=== PATIENT | male | born 1970 | race Two or more races ===

== ENCOUNTER 2017-01-31 16:31 | Emergency (ER) | payer MEDICAID, OTHER ==
[2017-01-31 16:41] VITALS: BP 141/93; PULSE 67; RESP 16; TEMP 98.8; O2SAT 94
--- NOTE | 2017-01-31 17:09 | EDPHY ---
H & P Stated Complaint: itchy eyes, headache, 3 days Time Seen by Provider: 01/31/17 16:51 HPI/ROS: CHIEF COMPLAINT: Headache HISTORY OF PRESENT ILLNESS: This is a 46-year-old male with a history of hypertension who presents with 3 days of ache. She describes headache bitemporal. It began gradually. It is now constant. He has not had fever. He denies visual changes, photophobia, and phonophobia. He has not had nausea or vomiting. He denies recent head trauma. He does not have sinus tenderness, nasal congestion, or sinus drainage. He had a toothache about a month ago, none since. He does report itchy eyes that he attributes to allergies. He took Tylenol 1 g at 2:00 p.m. today, 3 hours ago. He also took Tylenol yesterday. He has not otherwise taken any pain medication. REVIEW OF SYSTEMS: A ten point review of systems was performed and is negative with the exception of the items mentioned in the HPI. Past medical history: Hypertension Past surgical history: Denies Family history: Noncontributory Social history: He lives with his and 3 sons. He works in a warehouse. He does not use tobacco products. He drinks alcohol occasionally. General Appearance: Alert. Vital signs reviewed. Blood pressure 141/93. Eyes: Pupils equal and round, no conjunctival injection, no discharge. Anicteric. ENT, Mouth: Mucous membranes are moist, no oropharyngeal erythema or edema. No sinus tenderness or drainage. Neck: No lymphadenopathy, supple. Respiratory: Lungs are clear to auscultation; no wheezes, rales, or rhonchi. Cardiovascular: Regular rate and rhythm; no murmur, rub, or gallop. Gastrointestinal: Abdomen is soft and nontender, no masses or organomegaly, bowel sounds normal. Skin: Warm and dry, no rashes on exposed skin, normal color. Back: Nontender to palpation over the thoracolumbar spine. No CVAT. Extremities: No lower extremity edema, no calf tenderness or swelling. Neurological: Alert and oriented. Moving all four extremities easily and equally. Cranial nerves II through XII are examined and are intact (visual acuity not tested). Optic discs are sharp. Strength is 5 over 5 bilaterally with testing of all major motor groups. Sensation is intact to light touch over all 4 extremities. Deep tendon reflexes are 2+ in the biceps and knees bilaterally. Gait is normal. Psychiatric: Normal affect. - Personal History Current Tetanus Diphtheria and Acellular Pertussis (TDAP): Yes Tetanus Vaccine Date: <10 yr from 2013 - Medical/Surgical History Hx Asthma: No Hx Chronic Respiratory Disease: No Hx Diabetes: No Hx Cardiac Disease: Yes Hx Renal Disease: No Hx Cirrhosis: No Hx Alcoholism: No Hx HIV/AIDS: No Hx Splenectomy or Spleen Trauma: No Other PMH: no surgery. Hyperlipidemia. Family hx of HTN and Diabetes. hypertension - Social History Smoking Status: Never smoked Constitutional: Initial Vital Signs Temperature (C) 37.1 C 01/31/17 16:38 Heart Rate 67 01/31/17 16:38 Respiratory Rate 16 01/31/17 16:38 Blood Pressure 141/93 H 01/31/17 16:38 O2 Sat (%) 94 01/31/17 16:38 O2 Delivery Mode Room Air Allergies/Adverse Reactions: No Known Allergies Allergy (Verified 01/31/17 16:41) Home Medications: Medication Instructions Recorded Araseli Allergy 01/31/17 Lisinopril 01/31/17 Medical Decision Making ED Course/Re-evaluation: 46-year-old male with history of hypertension who presents with headache. Signs and symptoms are most consistent with a tension headache. I do not suspect subarachnoid hemorrhage given the history that he provides. There are no features of migraine. He is not otherwise ill and has not had fever and I do not suspect meningitis. He has a normal neurologic exam. I do not feel that neuro imaging is warranted. I am recommending more aggressive pain treatment with both Tylenol and ibuprofen. He does not have a local physician and I am referring him to a primary care physician. He is taking antihypertensive medication in the morning. He is aware of his high blood pressure reading today, 143/90. He knows that he should have this followed up with a primary care physician. I do not think that this is hypertensive urgency. Differential Diagnosis: Headache including but not limited to subarachnoid hemorrhage, migraine headache , tension headache and infectious causes such as meningitis, pharyngitis and sinusitis. Departure - Departure Disposition: Home, Routine, Self-Care Clinical Impression: Headache Qualifiers: Headache type: tension-type Headache chronicity pattern: acute headache Intractability: not intractable Qualified Code(s): G44.209 - Tension-type headache, unspecified, not intractable Condition: Good Instructions: Tension Headache (ED) Additional Instructions: Adult Pain & Fever Control: We recommend Acetaminophen (Tylenol) and Ibuprofen (Motrin,Advil) for pain and fever control. When fever is high or pain severe, both drugs can be used at the same time, but at different intervals. Please note the time differences. Your dose is: Acetaminophen [500]mg every 4 to 6 hours Ibuprofen [400]mg every [6] hours with food OR Note: do not take Acetaminophen with Hydrocodone (Vicodin, Lortab) or Oycodone (Percocet). These medications also contain Acetaminophen. No more than 3000mg of Acetaminophen should be taken in 24 hours (for an adult) . Your blood pressure was slightly high today-143/90. You should have this followed up with a primary care physician. I am providing you with some referrals. Referrals: Karla Gomes MD [Medical Doctor] - As per Instructions [facility] [Clinic] - As per Instructions Print Language: [place]
== END 2017-01-31 17:16 | disposition home or self-care (01) ==
LOC: CED 16:31
DX: G44.209 Tension-type headache, unspecified, not intractable (principal); I10 Essential (primary) hypertension